=== PATIENT | female | born 1990 | race African-American/Black ===

== ENCOUNTER 2017-11-07 07:02 | Inpatient (IN) ==
[2017-11-07] MEDS ORDERED: ONDANSETRON 4 MG/2 ML VIAL IV PRN ×2 (07:36→15:29)
[2017-11-07] MEDS ORDERED: OXYTOCIN/LR 30 UNIT/1,000 ML BAG IV ONE (07:39)
[2017-11-07] MEDS ORDERED: CITRIC ACID/SODIUM CITRATE 30 ML UDCUP PO ONE (07:39)
[2017-11-07] MEDS ORDERED: ceFAZolin 2,000 MG in PREMIX 1 EACH IV ONE (07:39)
[2017-11-07] MEDS ORDERED: LACTATED RINGERS 1,000 ML IV ONE (07:39)
[2017-11-07] MEDS ORDERED: OXYTOCIN 10 UNIT/ML VIAL IM ONE (07:39)
[2017-11-07] MEDS ORDERED: FAMOTIDINE 20 MG/2 ML VIAL IV SCH (08:00)
[2017-11-07] MEDS ORDERED: LACTATED RINGERS 1,000 ML IV SCH ×3 (08:00→15:29)
[2017-11-07 08:12] LABS: Basophils % 0.1 % (0.0-0.8); Eosinophils # 0.1 10*3/uL (0.0-0.87); Eosinophils % 0.8 % (0.00-10.9); Hematocrit 30.9 VOL% (35.7-47.0); Hemoglobin 10.3 GM/DL (12.0-16.0); Immature Granulocytes % 0.4 %; Immature Granulocytes Absolute 0.04 #; Lymphocytes # 2.3 10*3/uL (1.4-4.0); Lymphocytes % 24.6 % (21.3-54.2); Mean Corpuscular HGB Conc 33.3 GM/DL (32-36); Mean Corpuscular Hemoglobin 30 PG (27-34); Mean Corpuscular Volume 88.5 FL (87-102); Mean Platelet Volume 10.8 FL (9.6-12.0); Monocytes # 1.1 10*3/uL (0.11-0.8); Monocytes % 11.4 % (1.7-12.7); Neutrophils # 5.9 10*3/uL (1.4-7.4); Neutrophils % 62.7 % (38.7-73.9); Platelet Count 234 T/CUMM (130-400); Red Blood Count 3.49 MC/CUMM (3.8-5.5); Red Cell Distribution Width 14.5 % (9.3-17.3); White Blood Count 9.5 T/CUMM (4-12)
[2017-11-07 08:34] LABS: Albumin 2.6 G/DL (3.4-5.0); Bilirubin,Total 1.5 MG/DL (0.2-1.0); Calcium 9.1 MG/DL (8.5-10.1); Osmolality,Calculated 274.5 MOS/KG (273-304); Potassium 3.7 MMOL/L (3.5-5.1); Total Protein 6.4 G/DL (6.4-8.3); Uric Acid 3.6 MG/DL (2.6-6.0)
[2017-11-07 11:07] LABS: Apearance,Urine CLEAR (Clear); Bilirubin,Urine Negative (Negative); Blood, Urine Negative (Negative); Glucose,Urine (UA) Negative (Negative); Ketones,Urine 20 mg/dL (Negative); Mucus,Urine Few /LPF (Occasional); Nitrite,Urine Negative (Negative); Protein,Urine Negative; RBC,Urine 1 /HPF (0-4); Squamous Epithelial Cell,Urine Occasional /HPF (0-10); Urine Color Yellow (Yellow); Urine Specific Gravity 1.021 (1.001-1.035); WBC,Urine 1 /HPF (0-6)
[2017-11-07 12:52] LABS: Cord Arterial Blood HCO3 24.5 MMOL/L
[2017-11-07 12:54] LABS: Cord Venous Blood HCO3 22.3 MMOL/L; Cord Venous Blood PCO2 42.2 MMHG; Cord Venous Blood PO2 36.9
[2017-11-07] MEDS ORDERED: fentaNYL 100 MCG/2 ML VIAL ONE (13:17)
[2017-11-07] MEDS ORDERED: MORPHINE 10 MG/10 ML VIAL ONE (13:18)
[2017-11-07] MEDS ORDERED: OXYTOCIN/LR 20 UNIT/1,000 ML BAG IV ONE (15:29)
[2017-11-07] MEDS ORDERED: ACETAMINOPHEN 325 MG TABLET PO PRN (15:29)
[2017-11-07] MEDS ORDERED: RHO(D) IMMUNE GLOBULIN 300 MCG SYRINGE IM ONE (15:29)
[2017-11-07] MEDS ORDERED: diphenhydrAMINE 50 MG/1 ML VIAL ONE (16:11)
[2017-11-07] MEDS ORDERED: diphenhydrAMINE 50 MG/1 ML VIAL IV PRN (16:19)
[2017-11-07 20:27] LABS: Basophils % 0.1 % (0.0-0.8); Eosinophils # 0.1 10*3/uL (0.0-0.87); Eosinophils % 0.6 % (0.00-10.9); Hematocrit 28.4 VOL% (35.7-47.0); Hemoglobin 9.5 GM/DL (12.0-16.0); Immature Granulocytes % 0.5 %; Immature Granulocytes Absolute 0.05 #; Lymphocytes # 2.1 10*3/uL (1.4-4.0); Lymphocytes % 19.8 % (21.3-54.2); Mean Corpuscular HGB Conc 33.5 GM/DL (32-36); Mean Corpuscular Hemoglobin 30 PG (27-34); Mean Corpuscular Volume 88.5 FL (87-102); Mean Platelet Volume 10.9 FL (9.6-12.0); Monocytes # 0.9 10*3/uL (0.11-0.8); Monocytes % 8.5 % (1.7-12.7); Neutrophils # 7.4 10*3/uL (1.4-7.4); Neutrophils % 70.5 % (38.7-73.9); Platelet Count 219 T/CUMM (130-400); Red Blood Count 3.21 MC/CUMM (3.8-5.5); Red Cell Distribution Width 14.3 % (9.3-17.3); White Blood Count 10.5 T/CUMM (4-12)
[2017-11-07] MEDS: DOCUSATE SODIUM 100 MG CAPSULE PO SCH (22:19)
[2017-11-08] MEDS ORDERED: ceFAZolin 1,000 MG in SYRINGE 1 EACH IV SCH (04:30)
[2017-11-08 06:11] LABS: Basophils % 0.1 % (0.0-0.8); Eosinophils # 0.1 10*3/uL (0.0-0.87); Eosinophils % 0.8 % (0.00-10.9); Hematocrit 27.2 VOL% (35.7-47.0); Hemoglobin 9.1 GM/DL (12.0-16.0); Immature Granulocytes % 0.6 %; Immature Granulocytes Absolute 0.07 #; Lymphocytes # 1.3 10*3/uL (1.4-4.0); Lymphocytes % 10.5 % (21.3-54.2); Mean Corpuscular HGB Conc 33.5 GM/DL (32-36); Mean Corpuscular Hemoglobin 30 PG (27-34); Mean Corpuscular Volume 88.3 FL (87-102); Mean Platelet Volume 10.9 FL (9.6-12.0); Monocytes # 1.5 10*3/uL (0.11-0.8); Monocytes % 11.9 % (1.7-12.7); Neutrophils # 9.6 10*3/uL (1.4-7.4); Neutrophils % 76.1 % (38.7-73.9); Platelet Count 192 T/CUMM (130-400); Red Blood Count 3.08 MC/CUMM (3.8-5.5); Red Cell Distribution Width 14.4 % (9.3-17.3); White Blood Count 12.5 T/CUMM (4-12)
[2017-11-08] MEDS: IBUPROFEN 800 MG TABLET PO PRN ×2 (08:01→18:47)
[2017-11-08] MEDS: DOCUSATE SODIUM 100 MG CAPSULE PO SCH ×2 (10:04→21:08)
[2017-11-08] MEDS: SIMETHICONE CHEW 80 MG TABLET PO PRN ×2 (10:04→21:08)
[2017-11-08] MEDS: MAGNESIUM HYDROXIDE SUSP 30 ML UDCUP PO PRN ×2 (10:04→21:08)
[2017-11-08] MEDS: MULTIVITAMIN (PRENATAL) TABLET PO SCH (10:04)
[2017-11-08] MEDS: oxyCODONE/ACETAMINOPHEN 5-325 MG TABLET PO PRN (21:08)
[2017-11-09] MEDS: oxyCODONE/ACETAMINOPHEN 5-325 MG TABLET PO PRN (06:19)
[2017-11-09] MEDS: SIMETHICONE CHEW 80 MG TABLET PO PRN (08:50)
[2017-11-09] MEDS: DOCUSATE SODIUM 100 MG CAPSULE PO SCH (08:50)
[2017-11-09] MEDS: MAGNESIUM HYDROXIDE SUSP 30 ML UDCUP PO PRN (08:50)
[2017-11-09] MEDS: MULTIVITAMIN (PRENATAL) TABLET PO SCH (08:50)
[2017-11-09 11:24] VITALS: BP 122/80
[2017-11-09] MEDS: IBUPROFEN 800 MG TABLET PO PRN (12:05)
[2017-11-09] MEDS ORDERED: DIPH/TET/ACEL PERT BOOSTER VACCINE 0.5 ML VIAL IM ONE (12:44)
== END 2017-11-09 15:45 | disposition home or self-care (01) | DRG 540 ==
LOC: N.LDOUT 07:02 → N.LD 07:04 → N.OB 15:27
PROVIDERS: ADMIT Obstetrics & Gynecology; ATTEND Obstetrics & Gynecology
PROC: LDCSECT (ICD-10-PCS; 2017-11-07 12:00)